=== PATIENT | female | born 1945 | race Caucasian/White ===

== ENCOUNTER 2025-05-11 15:59 | Outpatient (CLI) | payer MEDICARE, SELFPAY ==
--- NOTE | ~2025-05-11 | XR_ITS ---
XR knee LT 3V 05/11/2025 16:46 Indication: Chronic left knee pain Procedure: 4 views left knee Comparison: No prior studies for comparison. Findings: There is moderate tricompartment osteoarthritis with valgus angulation. There is ossification along the medial femoral condyle most likely secondary to remote injury to the medial collateral ligament. No acute fracture or traumatic malalignment. No significant joint effusion. Impression: 1: Moderate osteoarthritis of the left knee. Reviewed, dictated and finalized at location O. RWRITER Impression: 1: Moderate osteoarthritis of the left knee.
--- NOTE | ~2025-05-11 | XR_ITS ---
XR knee RT 3V 05/11/2025 16:45 Indication: Right knee pain Procedure: 3 views right knee Comparison: No prior studies for comparison. Findings: Moderate osteoarthritis of the right knee. No fracture, subluxation or dislocation. No significant joint effusion. No foreign bodies. Osteopenia. Impression: 1: Moderate tricompartment osteoarthritis of the right knee. Reviewed, dictated and finalized at location O. LIFE ECOLOGIST Impression: 1: Moderate tricompartment osteoarthritis of the right knee.
--- OUTSIDE RECORDS SUMMARY | 2025-05-11 16:06 | XMS_ITS | Encounter Summary ---
Author Organization [facility] Address [address] [place] [address] Care Team Providers Care After School Teacher Name Role Phone Thaddeus Alamo MD Primary Care Provider Encounter Details Date Type Department Care Team (Latest Contact Info) Description 10/21/1998 Outpatient Historical [facility] Medicine[id number] [place] [address] Jaskaran Aguilar MD NO ADDRESS ON FILE Need for desensitization to allergens (Primary Dx) Social History Tobacco Use Types Packs/Day Years Used Date Smoking Tobacco: Never Assessed Comments Unknown Sex and Gender Information Value Date Recorded Sex Assigned at Not on file Legal Sex Female 3:29 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
--- OUTSIDE RECORDS SUMMARY | 2025-05-11 16:06 | XMS_ITS | Encounter Summary ---
Author Organization [facility] Address [address] [place] [address] Care Team Providers Care Bullard Machine Operator Name Role Phone Thaddeus Alamo MD Primary Care Provider [phone] Encounter Details Date Type Department Care Team (Latest Contact Info) Description 07/18/1998 Outpatient Historical [facility] Medicine-[address] [place] [address] Michael Dillon, DO [address] [place] [address] Need for desensitization to allergens (Primary Dx) Social History Tobacco Use Types Packs/Day Years Used Date Smoking Tobacco: Never Assessed Comments Unknown Sex and Gender Information Value Date Recorded Sex Assigned at Not on file Legal Sex Female 3:29 AM 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
--- OUTSIDE RECORDS SUMMARY | 2025-05-11 16:06 | XMS_ITS | Encounter Summary ---
Author Organization [facility] Address [address] [place] [address] Care Team Providers Care Pediatrics Hospitalist Name Role Phone Thaddeus Alamo MD Primary Care Provider [phone] Encounter Details Date Type Department Care Team (Latest Contact Info) Description 12/15/1997 Outpatient Historical [facility] Medicine-[address] [place] [address] Jaskaran Aguilar MD NO ADDRESS ON FILE Need for desensitization to allergens (Primary Dx) Social History Tobacco Use Types Packs/Day Years Used Date Smoking Tobacco: Never Assessed Comments Unknown Sex and Gender Information Value Date Recorded Sex Assigned at Not on file Legal Sex Female 3:29 AM AIR CONDITIONING MANAGER Gender Identity Not on file Sexual Orientation Not on file documented as of this encounter Plan of Treatment Not on file documented as of this encounter Visit Diagnoses Diagnosis Need for desensitization to allergens- Primary documented in this encounter Care Teams Pediatrics Hospitalist Relationship Specialty Start Date End Date Thaddeus Alamo MD [address] [place] [address] PCP - General Internal Medicine 06/26/16 documented as of this encounter
--- OUTSIDE RECORDS SUMMARY | 2025-05-11 16:06 | XMS_ITS | Encounter Summary ---
Author Organization [facility] Address [address] [place] [address] Care Team Providers Care Site Coordinator Name Role Phone Thaddeus Alamo MD Primary Care Provider Encounter Details Date Type Department Care Team (Latest Contact Info) Description 01/26/1999 Outpatient Historical [facility] [place] [address] Blanco Miller MD NO ADDRESS ON FILE Other chronic allergic conjunctivitis (Primary Dx); Chronic rhinitis; Allergic rhinitis, cause unspecified Social History Tobacco Use Types Packs/Day Years Used Date Smoking Tobacco: Never Assessed Comments Unknown Sex and Gender Information Value Date Recorded Sex Assigned at Not on file Legal Sex Female 3:29 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
--- OUTSIDE RECORDS SUMMARY | 2025-05-11 16:06 | XMS_ITS | Encounter Summary ---
Author Organization [facility] Address [address] [place] [address] Care Team Providers Care Moisture Conditioner Operator Name Role Phone Thaddeus Alamo MD Primary Care Provider [phone] Encounter Details Date Type Department Care Team (Latest Contact Info) Description 08/19/1998 Outpatient Historical [facility] Medicine-[address] [address] Babita Starks MD NO ADDRESS ON FILE Need for desensitization to allergens (Primary Dx) Social History Tobacco Use Types Packs/Day Years Used Date Smoking Tobacco: Never Assessed Comments Unknown Sex and Gender Information Value Date Recorded Sex Assigned at Not on file Legal Sex Female 3:29 AM SOLID WASTE ENGINEER Gender Identity Not on file Sexual Orientation Not on file documented as of this encounter Plan of Treatment Not on file documented as of this encounter Visit Diagnoses Diagnosis Need for desensitization to allergens- Primary documented in this encounter Care Teams Moisture Conditioner Operator Relationship Specialty Start Date End Date Thaddeus Alamo MD [address] [place] [phone] PCP - General Internal Medicine 06/26/16 documented as of this encounter
--- OUTSIDE RECORDS SUMMARY | 2025-05-11 16:06 | XMS_ITS | Encounter Summary ---
Author Organization [facility] Address [address] [place] [address] Care Team Providers Care Convenience Store Manager Name Role Phone Thaddeus Alamo MD Primary Care Provider Encounter Details Date Type Department Care Team (Latest Contact Info) Description 09/02/1997 Outpatient Historical [facility] Medicine[address] [place] [address] Michael Dillon, DO [address] [place] [address] Need for desensitization to allergens (Primary Dx) Social History Tobacco Use Types Packs/Day Years Used Date Smoking Tobacco: Never Assessed Comments Unknown Sex and Gender Information Value Date Recorded Sex Assigned at Not on file Legal Sex Female 3:29 AM CLIENT SUPPORT PROFESSIONAL Gender Identity Not on file Sexual Orientation Not on file documented as of this encounter Plan of Treatment Not on file documented as of this encounter Visit Diagnoses Diagnosis Need for desensitization to allergens- Primary documented in this encounter Care Teams Convenience Store Manager Relationship Specialty Start Date End Date Thaddeus Alamo MD [address] [place] [address] PCP - General Internal Medicine 06/26/16 documented as of this encounter
--- OUTSIDE RECORDS SUMMARY | 2025-05-11 16:06 | XMS_ITS | Encounter Summary ---
Author Organization [facility] Address [address] [place] [address] Care Team Providers Care Field Examiner Name Role Phone Thaddeus Alamo MD Primary Care Provider [phone] Encounter Details Date Type Department Care Team (Latest Contact Info) Description 08/20/1997 Outpatient Historical [facility] Medicine[address] [place] [address] Jaskaran Aguilar MD NO ADDRESS ON FILE Need for desensitization to allergens (Primary Dx) Social History Tobacco Use Types Packs/Day Years Used Date Smoking Tobacco: Never Assessed Comments Unknown Sex and Gender Information Value Date Recorded Sex Assigned at Not on file Legal Sex Female 3:29 AM BUSINESS CONTROL MANAGER Gender Identity Not on file Sexual Orientation Not on file documented as of this encounter Plan of Treatment Not on file documented as of this encounter Visit Diagnoses Diagnosis Need for desensitization to allergens- Primary documented in this encounter Care Teams Field Examiner Relationship Specialty Start Date End Date Thaddeus Alamo MD [address] [place] [address] PCP - General Internal Medicine 06/26/16 documented as of this encounter
--- OUTSIDE RECORDS SUMMARY | 2025-05-11 16:06 | XMS_ITS | Encounter Summary ---
Author Organization [facility] Address [address] [place] [address] Care Team Providers Care Dial Screw Assembler Name Role Phone Thaddeus Alamo MD Primary Care Provider Encounter Details Date Type Department Care Team (Latest Contact Info) Description 03/07/1998 Outpatient Historical [facility] Medicine[address] [place] [address] Michael Dillon, DO [address] [place] [address] Need for desensitization to allergens (Primary Dx) Social History Tobacco Use Types Packs/Day Years Used Date Smoking Tobacco: Never Assessed Comments Unknown Sex and Gender Information Value Date Recorded Sex Assigned at Not on file Legal Sex Female 3:29 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
--- OUTSIDE RECORDS SUMMARY | 2025-05-11 16:06 | XMS_ITS | Encounter Summary ---
Author Organization [facility] Address [address] [place] [address] Care Team Providers Care Finance Teacher Name Role Phone Thaddeus Alamo MD Primary Care Provider Encounter Details Date Type Department Care Team (Latest Contact Info) Description 06/17/1998 Outpatient Historical [facility] Medicine[address] [place] [address] Michael Dillon, DO [address] [place] [address] Need for desensitization to allergens (Primary Dx) Social History Tobacco Use Types Packs/Day Years Used Date Smoking Tobacco: Never Assessed Comments Unknown Sex and Gender Information Value Date Recorded Sex Assigned at Not on file Legal Sex Female 3:29 AM TEST LEAD APPLICATION TESTING Gender Identity Not on file Sexual Orientation Not on file documented as of this encounter Plan of Treatment Not on file documented as of this encounter Visit Diagnoses Diagnosis Need for desensitization to allergens- Primary documented in this encounter Care Teams Finance Teacher Relationship Specialty Start Date End Date Thaddeus Alamo MD [address] [place] [address] PCP - General Internal Medicine 06/26/16 documented as of this encounter
--- OUTSIDE RECORDS SUMMARY | 2025-05-11 16:06 | XMS_ITS | Encounter Summary ---
Author Organization [facility] Address [address] [place] [address] Care Team Providers Care Application Support Manager Name Role Phone Thaddeus Alamo MD Primary Care Provider Encounter Details Date Type Department Care Team (Latest Contact Info) Description 06/14/1997 Outpatient [facility] [address] [place] [address] Michael Malagon MD NO ADDRESS ON FILE Unspecified essential hypertension (Primary Dx) Social History Tobacco Use Types Packs/Day Years Used Date Smoking Tobacco: Never Assessed Comments Unknown Sex and Gender Information Value Date Recorded Sex Assigned at Not on file 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
--- OUTSIDE RECORDS SUMMARY | 2025-05-11 16:06 | XMS_ITS | Clinical Summary ---
Author Organization [facility] Address [address] [place] [address] Care Team Providers Care Sales Promoter Name Role Phone Thaddeus Alamo MD Primary Care Provider Allergies No known active allergies Medications glimepiride (AMARYL) 4 mg tablet Take 4 mg by mouth 2 times daily with meals. 07/02/2017 Active valsartan (DIOVAN) 320 mg tablet Take 1 Tablet (320 mg) by mouth daily. 90 Tablet 1 05/11/2025 Active carvedilol (COREG) 12.5 mg tablet Take 0.5 Tablets (6.25 mg) by mouth every 12 hours with a meal/food. 45 Tablet 1 05/11/2025 Active furosemide (LASIX) 40 mg tablet Take 1 Tablet (40 mg) by mouth 2 times daily. 180 Tablet 1 05/11/2025 Active empagliflozin (Jardiance) 10 mg tablet Take 1 Tablet (10 mg) by mouth daily. 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 Type II or unspecified type diabetes mellitus without mention of complication, not stated as uncontrolled 06/02/2013 Pinguecula 06/02/2013 Vitreous floaters 06/02/2013 Resolved Problems Problem Noted Date Diagnosed Date Resolved Date Early cataracts, bilateral 06/02/2013 0 06/01/2015 Encounters Date Type Department Care Team Description 05/04/2025 External Device Data STL ABSTRACTION Provider, Abstract 02/23/2025 External Device Data [facility] ABSTRACTION Provider, Abstract from Last 3 Months Family History Medical History Relation Name Comments Diabetes Maternal Uncle Macular Degen Paternal Aunt Cataract Paternal Grandmother Amblyopia Neg Hx Blindness Neg Hx Detachment/Tears Neg Hx Glaucoma Neg Hx Strabismus Neg Hx Relation Name Status Comments Maternal Uncle Paternal Aunt Paternal Grandmother Social History Tobacco Use Types Packs/Day Years Used Date Smoking Tobacco: Never Assessed Alcohol Use Standard Drinks/Week Comments No 0 (1 standard drink = 0.6 oz pur e alcohol) Comments Unknown Sex and Gender Information Value Date Recorded Sex Assigned at Not on file Legal Sex Female 4:36 AM FIELD SERVICE MANAGER Gender Identity Not on file Sexual Orientation Not on file Last Filed Vital Signs Vital Sign Reading Time Taken Comments Blood Pressure 150/63 07/02/2017 3:27 PM FIELD SERVICE MANAGER Pulse - - Temperature - - Respiratory Rate - - Oxygen Saturation - - Inhaled Oxygen Concentration - - Weight 143.8 kg (317 lb) 07/02/2017 3:27 PM FIELD SERVICE MANAGER Height 162.6 cm (5' 4) 07/02/2017 3:27 PM FIELD SERVICE MANAGER Body Mass Index 54.41 07/02/2017 3:27 PM FIELD SERVICE MANAGER Plan of Treatment Health Maintenance Due Date Last Done Comments DIABETES ANNUAL FOOT EXAM 1964 DIABETES MICROALBUMIN ANNUAL SCREEN 1964 LDL CHOLESTEROL ANNUAL 1964 OSTEOPOROSIS SCREENING 10/01/2011 RSV VACCINE (60+ or ) (1 - 1-dose 75+ series) 2021 DIABETES ANNUAL RETINAL EXAM 10/25/202311/2022, 10/24/2022, 10/24/2022, Additional history exists INFLUENZA VACCINE (#1) 2024 , 03/08/2024, 03/08/2023, Additional history exists COVID-19 Vaccine (2024-2 6 season) 2025 02/03/2024, 03/08/2023, 02/02/2022, Additional history exists DIABETES HBA1C Q 6 MONTHS 04/21/2025 10/20/2024 DTAP/TDAP/TD VACCINES (2 - T d or Tdap) 08/30/2027 08/29/2017 ZOSTER VACCINE Completed 01/07/2020, 07/07/2019 PNEUMOCOCCAL VACCINE 50+ YEARS Completed 0 07/15/2024, 07/07/2019, 08/29/2017 Insurance MEDICARE PART A AND B [facility] MEDICARE PART A AND B [facility] [employer] Medicare Part D Care Teams Sales Promoter Relationship Specialty Start Date End Date Thaddeus Alamo MD [address] [place] [address] PCP - General Internal Medicine 06/26/16
--- OUTSIDE RECORDS SUMMARY | 2025-05-11 16:06 | XMS_ITS | Encounter Summary ---
Author Organization [facility] Address [address] [place] [address] Care Team Providers Care Motor Home Electrical Foreman Name Role Phone Thaddeus Alamo MD Primary Care Provider Encounter Details Date Type Department Care Team (Latest Contact Info) Description 06/03/1997 Outpatient Historical [facility] Medicine[address] [place] [address] Michael Dillon, DO [address] [place] [address] Need for desensitization to allergens (Primary Dx) Social History Tobacco Use Types Packs/Day Years Used Date Smoking Tobacco: Never Assessed Comments Unknown Sex and Gender Information Value Date Recorded Sex Assigned at Not on file Legal Sex Female 3:29 AM LOAN SERVICE OFFICER Gender Identity Not on file Sexual Orientation Not on file documented as of this encounter Plan of Treatment Not on file documented as of this encounter Visit Diagnoses Diagnosis Need for desensitization to allergens- Primary documented in this encounter Care Teams Motor Home Electrical Foreman Relationship Specialty Start Date End Date Thaddeus Alamo MD [address] [place] [address] PCP - General Internal Medicine 06/26/16 documented as of this encounter
--- OUTSIDE RECORDS SUMMARY | 2025-05-11 16:06 | XMS_ITS | Encounter Summary ---
Author Organization [facility] Address [address] [place] [address] Care Team Providers Care Cargo Services Coordinator Name Role Phone Thaddeus Alamo MD Primary Care Provider Encounter Details Date Type Department Care Team (Latest Contact Info) Description 04/19/1999 Outpatient Historical [facility] Medicine-[address] [place] [address] Jaskaran Aguilar MD NO ADDRESS ON FILE Need for desensitization to allergens (Primary Dx) Social History Tobacco Use Types Packs/Day Years Used Date Smoking Tobacco: Never Assessed Comments Unknown Sex and Gender Information Value Date Recorded Sex Assigned at Not on file Legal Sex Female 3:29 AM BENDER HAND Gender Identity Not on file Sexual Orientation Not on file documented as of this encounter Plan of Treatment Not on file documented as of this encounter Visit Diagnoses Diagnosis Need for desensitization to allergens- Primary documented in this encounter Care Teams Cargo Services Coordinator Relationship Specialty Start Date End Date Thaddeus Alamo MD [address] [place] [address] PCP - General Internal Medicine 06/26/16 documented as of this encounter
--- OUTSIDE RECORDS SUMMARY | 2025-05-11 16:06 | XMS_ITS | Encounter Summary ---
Author Organization [facility] Address [address] [place] [address] Care Team Providers Care Motorcycle Fabricator Name Role Phone Thaddeus Alamo MD Primary Care Provider [phone] Encounter Details Date Type Department Care Team (Latest Contact Info) Description 11/22/1998 Outpatient Historical [facility] Medicine[address] [place] [address] Jaskaran Aguilar MD NO ADDRESS ON FILE Need for desensitization to allergens (Primary Dx) Social History Tobacco Use Types Packs/Day Years Used Date Smoking Tobacco: Never Assessed Comments Unknown Sex and Gender Information Value Date Recorded Sex Assigned at Not on file Legal Sex Female 3:29 AM AIR BRAKE OPERATOR Gender Identity Not on file Sexual Orientation Not on file documented as of this encounter Plan of Treatment Not on file documented as of this encounter Visit Diagnoses Diagnosis Need for desensitization to allergens- Primary documented in this encounter Care Teams Motorcycle Fabricator Relationship Specialty Start Date End Date Thaddeus Alamo MD [address] [place] [address] PCP - General Internal Medicine 06/26/16 documented as of this encounter
--- OUTSIDE RECORDS SUMMARY | 2025-05-11 16:06 | XMS_ITS | Encounter Summary ---
Author Organization [facility] Address [address] [place] [address] Care Team Providers Care Certified Retinal Angiographer Name Role Phone Thaddeus Alamo MD Primary Care Provider Encounter Details Date Type Department Care Team (Latest Contact Info) Description 07/01/1997 Outpatient Historical [facility] Medicine-[address] [address] Babita Starks MD NO ADDRESS ON FILE Need for desensitization to allergens (Primary Dx) Social History Tobacco Use Types Packs/Day Years Used Date Smoking Tobacco: Never Assessed Comments Unknown Sex and Gender Information Value Date Recorded Sex Assigned at Not on file Legal Sex Female 3:29 AM RETAIL BANKING MANAGER Gender Identity Not on file Sexual Orientation Not on file documented as of this encounter Plan of Treatment Not on file documented as of this encounter Visit Diagnoses Diagnosis Need for desensitization to allergens- Primary documented in this encounter Care Teams Certified Retinal Angiographer Relationship Specialty Start Date End Date Thaddeus Alamo MD [address] [place] [address] PCP - General Internal Medicine 06/26/16 documented as of this encounter
--- OUTSIDE RECORDS SUMMARY | 2025-05-11 16:06 | XMS_ITS | Encounter Summary ---
Author Organization [facility] Address [address] [place] [address] Care Team Providers Care Steward/Stewardess Second Name Role Phone Thaddeus Alamo MD Primary Care Provider Encounter Details Date Type Department Care Team (Latest Contact Info) Description 04/26/1997 Outpatient Historical [facility] Medicine[address] [place] [address] Jaskaran Aguilar MD NO ADDRESS ON FILE Need for desensitization to allergens (Primary Dx) Social History Tobacco Use Types Packs/Day Years Used Date Smoking Tobacco: Never Assessed Comments Unknown Sex and Gender Information Value Date Recorded Sex Assigned at Not on file Legal Sex Female 3:29 AM DATA WAREHOUSE MANAGER Gender Identity Not on file Sexual Orientation Not on file documented as of this encounter Plan of Treatment Not on file documented as of this encounter Visit Diagnoses Diagnosis Need for desensitization to allergens- Primary documented in this encounter Care Teams Steward/Stewardess Second Relationship Specialty Start Date End Date Thaddeus Alamo MD [address] [place] [phone] PCP - General Internal Medicine 06/26/16 documented as of this encounter
--- OUTSIDE RECORDS SUMMARY | 2025-05-11 16:06 | XMS_ITS | Encounter Summary ---
Author Organization [facility] Address [address] [place] [address] Care Team Providers Care Content Coordinator Name Role Phone Thaddeus Alamo MD Primary Care Provider [phone] Encounter Details Date Type Department Care Team (Late st Contact Info) Description 07/18/[address] [facility] [address] Social History Tobacco Use Types Packs/Day Years Used Date Smoking Tobacco: Never Assessed Comments Unknown Sex and Gender Information Value Date Recorded Sex Assigned at Not on file Legal Sex Female 3:29 AM PRESSING MACHINE TENDER Gender Identity Not on file Sexual Orientation Not on file documented as of this encounter Plan of Treatment Not on file documented as of this encounter Visit Diagnoses Not on filedocumented in this encounter Care Teams Content Coordinator Relationship Specialty Start Date End Date Thaddeus Alamo MD [address] [place] [address] PCP - General Internal Medicine 06/26/16 documented as of this encounter
--- OUTSIDE RECORDS SUMMARY | 2025-05-11 16:06 | XMS_ITS | Encounter Summary ---
Author Organization [facility] Address [address] [place] [address] Care Team Providers Care Hide Tanner Name Role Phone Thaddeus Alamo MD Primary Care Provider Encounter Details Date Type Department Care Team (Latest Contact Info) Description 07/29/1997 Outpatient Historical [facility] [address] [place] [address] Michael Dillon, DO [address] [place] [address] Need for desensitization to allergens (Primary Dx) Social History Tobacco Use Types Packs/Day Years Used Date Smoking Tobacco: Never Assessed Comments Unknown Sex and Gender Information Value Date Recorded Sex Assigned at Not on file Legal Sex Female 3:29 AM SENIOR ADMINISTRATOR SUPPORT Gender Identity Not on file Sexual Orientation Not on file documented as of this encounter Plan of Treatment Not on file documented as of this encounter Visit Diagnoses Diagnosis Need for desensitization to allergens- Primary documented in this encounter Care Teams Hide Tanner Relationship Specialty Start Date End Date Thaddeus Alamo MD [address] [place] [address] PCP - General Internal Medicine 06/26/16 documented as of this encounter
--- OUTSIDE RECORDS SUMMARY | 2025-05-11 16:06 | XMS_ITS | Encounter Summary ---
Author Organization [facility] Address [address] [place] [address] Care Team Providers Care Pigment Grinder Name Role Phone Thaddeus Alamo MD Primary Care Provider Encounter Details Date Type Department Care Team (Latest Contact Info) Description 03/22/1999 Outpatient Historical [facility] Medicine[address] [place] [address] Michael Dillon, DO [address] [place] [address] Need for desensitization to allergens (Primary Dx) Social History Tobacco Use Types Packs/Day Years Used Date Smoking Tobacco: Never Assessed Comments Unknown Sex and Gender Information Value Date Recorded Sex Assigned at Not on file 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
--- OUTSIDE RECORDS SUMMARY | 2025-05-11 16:06 | XMS_ITS | Encounter Summary ---
Author Organization [facility] Address [address] [place] [address] Care Team Providers Care Sales Applications Engineer Name Role Phone Thaddeus Alamo MD Primary Care Provider [phone] Encounter Details Date Type Department Care Team (Latest Contact Info) Description 07/19/1997 Outpatient Historical [facility] Curtis Ruiz MD NO ADDRESS ON FILE Localized osteoarthrosis not specified whether primary or secondary, lower leg (Primary Dx) Social History Tobacco Use Types Packs/Day Years Used Date Smoking Tobacco: Never Assessed Comments Unknown Sex and Gender Information Value Date Recorded Sex Assigned at Not on file Legal Sex Female 3:29 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
--- OUTSIDE RECORDS SUMMARY | 2025-05-11 16:06 | XMS_ITS | Encounter Summary ---
Author Organization [facility] Address [address] [place] [address] Care Team Providers Care Manager Financial Systems Name Role Phone Thaddeus Alamo MD Primary Care Provider Encounter Details Date Type Department Care Team (Late st Contact Info) Description 10/05/1997 Outpatient [facility] [address] [place] [address] Graciela Kevin MD [address] [place] [address] Abn Pap Smear-Cervix (Primary Dx) Social History Tobacco Use Types Packs/Day Years Used Date Smoking Tobacco: Never Assessed Comments Unknown Sex and Gender Information Value Date Recorded Sex Assigned at Not on file Legal Sex Female 3:29 AM FILM HISTORIAN Gender Identity Not on file Sexual Orientation Not on file documented as of this encounter Plan of Treatment Not on file documented as of this encounter Visit Diagnoses Diagnosis Abn Pap Smear-Cervix- Primary 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
--- OUTSIDE RECORDS SUMMARY | 2025-05-11 16:06 | XMS_ITS | Encounter Summary ---
Author Organization [facility] Address [address] [place] [address] Care Team Providers Care General Expeditor Name Role Phone Thaddeus Alamo MD Primary Care Provider Encounter Details Date Type Department Care Team (Latest Contact Info) Description 09/16/1997 Outpatient Historical [facility] Medicine[address] [place] [address] Michael Dillon, DO [address] [place] [address] Need for desensitization to allergens (Primary Dx) Social History Tobacco Use Types Packs/Day Years Used Date Smoking Tobacco: Never Assessed Comments Unknown Sex and Gender Information Value Date Recorded Sex Assigned at Not on file 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
--- OUTSIDE RECORDS SUMMARY | 2025-05-11 16:06 | XMS_ITS | Encounter Summary ---
Author Organization [facility] Address [address] [place] [address] Care Team Providers Care Blunger Loader Name Role Phone Thaddeus Alamo MD Primary Care Provider Encounter Details Date Type Department Care Team (Latest Contact Info) Description 10/18/1997 Outpatient Historical [facility] Medicine[address] [place] [address] Michael Dillon, DO [address] [place] [address] Need for desensitization to allergens (Primary Dx) Social History Tobacco Use Types Packs/Day Years Used Date Smoking Tobacco: Never Assessed Comments Unknown Sex and Gender Information Value Date Recorded Sex Assigned at Not on file 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
--- OUTSIDE RECORDS SUMMARY | 2025-05-11 16:06 | XMS_ITS | Encounter Summary ---
Author Organization [facility] Address [address] [place] [address] Care Team Providers Care Dielectric Press Operator Name Role Phone Thaddeus Alamo MD Primary Care Provider [phone] Encounter Details Date Type Department Care Team (Latest Contact Info) Description 12/02/[address] 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
--- OUTSIDE RECORDS SUMMARY | 2025-05-11 16:06 | XMS_ITS | Encounter Summary ---
Author Organization [facility] Address [address] [place] [address] Care Team Providers Care Cab Driver Name Role Phone Thaddeus Alamo MD Primary Care Provider Encounter Details Date Type Department Care Team (Latest Contact Info) Description 12/26/1998 Outpatient Historical [facility] Medicine-[address] [address] Babita Starks MD NO ADDRESS ON FILE Need for desensitization to allergens (Primary Dx) Social History Tobacco Use Types Packs/Day Years Used Date Smoking Tobacco: Never Assessed Comments Unknown Sex and Gender Information Value Date Recorded Sex Assigned at Not on file Legal Sex Female 3:29 AM PLATFORM MATERIAL HANDLING 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
--- OUTSIDE RECORDS SUMMARY | 2025-05-11 16:06 | XMS_ITS | Encounter Summary ---
Author Organization [facility] Address [address] [place] [address] Care Team Providers Care Emergency Medical Service Coordinator Name Role Phone Thaddeus Alamo MD Primary Care Provider Encounter Details Date Type Department Care Team (Latest Contact Info) Description 02/08/1998 Outpatient Historical [facility] Medicine-[address] [address] Babita Starks MD NO ADDRESS ON FILE Need for desensitization to allergens (Primary Dx) Social History Tobacco Use Types Packs/Day Years Used Date Smoking Tobacco: Never Assessed Comments Unknown Sex and Gender Information Value Date Recorded Sex Assigned at Not on file 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
--- OUTSIDE RECORDS SUMMARY | 2025-05-11 16:06 | XMS_ITS | Encounter Summary ---
Author Organization [facility] Address [address] [place] [address] Care Team Providers Care Field Services Analyst Name Role Phone Thaddeus Alamo MD Primary Care Provider Encounter Details Date Type Department Care Team (Latest Contact Info) Description 04/18/1998 Outpatient Historical [facility] Medicine-[address] [address] Babita Starks MD NO ADDRESS ON FILE Need for desensitization to allergens (Primary Dx) Social History Tobacco Use Types Packs/Day Years Used Date Smoking Tobacco: Never Assessed Comments Unknown Sex and Gender Information Value Date Recorded Sex Assigned at Not on file 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
--- OUTSIDE RECORDS SUMMARY | 2025-05-11 16:06 | XMS_ITS | Encounter Summary ---
Author Organization [facility] Address [address] [place] [address] Care Team Providers Care Disability Program Navigator Name Role Phone Thaddeus Alamo MD Primary Care Provider Encounter Details Date Type Department Care Team (Latest Contact Info) Description 09/19/1998 Outpatient Historical [facility] Medicine[address] [place] [address] Michael Dillon, DO [address] [place] [address] Need for desensitization to allergens (Primary Dx) Social History Tobacco Use Types Packs/Day Years Used Date Smoking Tobacco: Never Assessed Comments Unknown Sex and Gender Information Value Date Recorded Sex Assigned at Not on file Legal Sex Female 3:29 AM SOUS CHEF Gender Identity Not on file Sexual Orientation Not on file documented as of this encounter Plan of Treatment Not on file documented as of this encounter Visit Diagnoses Diagnosis Need for desensitization to allergens- Primary documented in this encounter Care Teams Disability Program Navigator Relationship Specialty Start Date End Date Thaddeus Alamo MD [address] [place] [address] PCP - General Internal Medicine 06/26/16 documented as of this encounter
--- OUTSIDE RECORDS SUMMARY | 2025-05-11 16:06 | XMS_ITS | Encounter Summary ---
Author Organization [facility] Address [address] [place] [address] Care Team Providers Care Derrick Boat Runner Name Role Phone Thaddeus Alamo MD Primary Care Provider Encounter Details Date Type Department Care Team (Latest Contact Info) Description 06/16/1997 Outpatient Historical [facility] Medicine[address] [place] [address] Michael Dillon, DO [address] [place] [address] Need for desensitization to allergens (Primary Dx) Social History Tobacco Use Types Packs/Day Years Used Date Smoking Tobacco: Never Assessed Comments Unknown Sex and Gender Information Value Date Recorded Sex Assigned at Not on file 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
--- OUTSIDE RECORDS SUMMARY | 2025-05-11 16:06 | XMS_ITS | Encounter Summary ---
Author Organization [facility] Address [address] [place] [address] Care Team Providers Care Grinding Machine Operator Portable Name Role Phone Thaddeus Alamo MD Primary Care Provider [phone] Encounter Details Date Type Department Care Team (Latest Contact Info) Description 05/02/1998 Outpatient Historical [facility] Medicine[address] [place] [address] Michael Dillon, DO [address] [place] [address] Need for desensitization to allergens (Primary Dx) Social History Tobacco Use Types Packs/Day Years Used Date Smoking Tobacco: Never Assessed Comments Unknown Sex and Gender Information Value Date Recorded Sex Assigned at Not on file 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
--- OUTSIDE RECORDS SUMMARY | 2025-05-11 16:06 | XMS_ITS | Encounter Summary ---
Author Organization [facility] Address [address] [place] [address] Care Team Providers Care Solar Development Engineer Name Role Phone Thaddeus Alamo MD Primary Care Provider Encounter Details Date Type Department Care Team (Latest Contact Info) Description 02/22/1998 Outpatient Historical [facility] Medicine[address] [place] [address] Michael Dillon, DO [address] [place] [address] Need for desensitization to allergens (Primary Dx) Social History Tobacco Use Types Packs/Day Years Used Date Smoking Tobacco: Never Assessed Comments Unknown Sex and Gender Information Value Date Recorded Sex Assigned at Not on file Legal Sex Female 3:29 AM STUDENT DEVELOPMENT COORDINATOR Gender Identity Not on file Sexual Orientation Not on file documented as of this encounter Plan of Treatment Not on file documented as of this encounter Visit Diagnoses Diagnosis Need for desensitization to allergens- Primary documented in this encounter Care Teams Solar Development Engineer Relationship Specialty Start Date End Date Thaddeus Alamo MD [address] [place] [address] PCP - General Internal Medicine 06/26/16 documented as of this encounter
--- OUTSIDE RECORDS SUMMARY | 2025-05-11 16:06 | XMS_ITS | Encounter Summary ---
Author Organization [facility] Address [address] [place] [address] Care Team Providers Care Head Wood Grinder Name Role Phone Thaddeus Alamo MD Primary Care Provider Encounter Details Date Type Department Care Team (Latest Contact Info) Description 02/01/[address] [facility] [place] [address] Curtis Arreola, OD [address] [place] [address] CONJUNCTIVITIS NOS (Primary Dx) Social History Tobacco Use Types Packs/Day Years Used Date Smoking Tobacco: Never Assessed Comments Unknown Sex and Gender Information Value Date Recorded Sex Assigned at Not on file Legal Sex Female 3:29 AM PRODUCTION CONTROL ANALYST Gender Identity Not on file Sexual Orientation Not on file documented as of this encounter Plan of Treatment Not on file documented as of this encounter Visit Diagnoses Diagnosis Conjunctivitis unspecified- Primary Conjunctivitis, unspecified documented in this encounter Care Teams Head Wood Grinder Relationship Specialty Start Date End Date Thaddeus Alamo MD [address] [place] [address] PCP - General Internal Medicine 06/26/16 documented as of this encounter
--- OUTSIDE RECORDS SUMMARY | 2025-05-11 16:06 | XMS_ITS | Encounter Summary ---
Author Organization [facility] Address [address] [place] [address] Care Team Providers Care Vending Mechanic Name Role Phone Thaddeus Alamo MD Primary Care Provider [phone] Encounter Details Date Type Department Care Team (Latest Contact Info) Description 07/15/1997 Outpatient Historical [facility] Medicine[address] [place] [address] Michael Dillon, DO [address] [place] [address] Need for desensitization to allergens (Primary Dx) Social History Tobacco Use Types Packs/Day Years Used Date Smoking Tobacco: Never Assessed Comments Unknown Sex and Gender Information Value Date Recorded Sex Assigned at Not on file 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
--- OUTSIDE RECORDS SUMMARY | 2025-05-11 16:06 | XMS_ITS | Encounter Summary ---
Author Organization [facility] Address [address] [place] [address] Care Team Providers Care Parts Identifier Name Role Phone Thaddeus Alamo MD Primary Care Provider Encounter Details Date Type Department Care Team (Latest Contact Info) Description 02/10/1999 Outpatient Historical [facility] Medicine-[address] [address] Babita Starks MD NO ADDRESS ON FILE Need for desensitization to allergens (Primary Dx) Social History Tobacco Use Types Packs/Day Years Used Date Smoking Tobacco: Never Assessed Comments Unknown Sex and Gender Information Value Date Recorded Sex Assigned at Not on file 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
--- OUTSIDE RECORDS SUMMARY | 2025-05-11 16:06 | XMS_ITS | Encounter Summary ---
Author Organization [facility] Address [address] [place] [address] Care Team Providers Care Entertainment Lawyer Name Role Phone Thaddeus Alamo MD Primary Care Provider [phone] Encounter Details Date Type Department Care Team (Latest Contact Info) Description 11/10/1997 Outpatient Historical [facility] [address] [place] [address] Jaskaran Aguilar MD NO ADDRESS ON FILE Need for desensitization to allergens (Primary Dx) Social History Tobacco Use Types Packs/Day Years Used Date Smoking Tobacco: Never Assessed Comments Unknown Sex and Gender Information Value Date Recorded Sex Assigned at Not on file Legal Sex Female 3:29 AM DEBURRING TECHNICIAN Gender Identity Not on file Sexual Orientation Not on file documented as of this encounter Plan of Treatment Not on file documented as of this encounter Visit Diagnoses Diagnosis Need for desensitization to allergens- Primary documented in this encounter Care Teams Entertainment Lawyer Relationship Specialty Start Date End Date Thaddeus Alamo MD [address] [place] [phone] PCP - General Internal Medicine 06/26/16 documented as of this encounter
--- OUTSIDE RECORDS SUMMARY | 2025-05-11 16:06 | XMS_ITS | Encounter Summary ---
Author Organization [facility] Address [address] [place] [address] Care Team Providers Care Oiler And Greaser Name Role Phone Thaddeus Alamo MD Primary Care Provider [phone] Encounter Details Date Type Department Care Team (Latest Contact Info) Description 05/21/1997 Outpatient Historical [facility] Medicine-[address] [address] Babita Starks MD NO ADDRESS ON FILE Need for desensitization to allergens (Primary Dx) Social History Tobacco Use Types Packs/Day Years Used Date Smoking Tobacco: Never Assessed Comments Unknown Sex and Gender Information Value Date Recorded Sex Assigned at Not on file Legal Sex Female 3:29 AM ZONING TECHNICIAN Gender Identity Not on file Sexual Orientation Not on file documented as of this encounter Plan of Treatment Not on file documented as of this encounter Visit Diagnoses Diagnosis Need for desensitization to allergens- Primary documented in this encounter Care Teams Oiler And Greaser Relationship Specialty Start Date End Date Thaddeus Alamo MD [address] [place] [phone] PCP - General Internal Medicine 06/26/16 documented as of this encounter
--- OUTSIDE RECORDS SUMMARY | 2025-05-11 16:06 | XMS_ITS | Encounter Summary ---
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) Social History Tobacco Use Types Packs/Day Years Used Date Smoking Tobacco: Never Assessed Comments Unknown Sex and Gender Information Value Date Recorded Sex Assigned at Not on file Legal Sex Female 3:29 AM IMMUNOCHEMIST Gender Identity Not on file Sexual Orientation Not on file documented as of this encounter Plan of Treatment Not on file documented as of this encounter Visit Diagnoses Diagnosis Prolapse of vaginal yee without mention of uterine prolapse- Primary documented in this encounter Care Teams Bakery Clerk Relationship Specialty Start Date End Date Thaddeus Alamo MD [address] [place] [address] PCP - General Internal Medicine 06/26/16 documented as of this encounter
--- OUTSIDE RECORDS SUMMARY | 2025-05-11 16:06 | XMS_ITS | Encounter Summary ---
Author Organization [facility] Address [address] [place] [address] Care Team Providers Care Drive In Waiter/Waitress Name Role Phone Thaddeus Alamo MD Primary Care Provider Encounter Details Date Type Department Care Team (Late st Contact Info) Description 06/14/1997 Outpatient Historical [facility] Imaging [facility] [address] [place] [phone] Idris Altamirano MD [address] [place] [address] Pain in joint, pelvic region and thigh (Primary Dx) Social History Tobacco Use Types Packs/Day Years Used Date Smoking Tobacco: Never Assessed Comments Unknown Sex and Gender Information Value Date Recorded Sex Assigned at Not on file Legal Sex Female 3:29 AM LOAD OUT WORKER Gender Identity Not on file Sexual Orientation Not on file documented as of this encounter Plan of Treatment Not on file documented as of this encounter Visit Diagnoses Diagnosis Pain in joint, pelvic region and thigh- Primary documented in this encounter Care Teams Drive In Waiter/Waitress Relationship Specialty Start Date End Date Thaddeus Alamo MD [address] [place] [phone] PCP - General Internal Medicine 06/26/16 documented as of this encounter
--- OUTSIDE RECORDS SUMMARY | 2025-05-11 16:06 | XMS_ITS | Encounter Summary ---
Author Organization [facility] Address [address] [place] [address] Care Team Providers Care Retail Analytics Manager Name Role Phone Thaddeus Alamo MD Primary Care Provider [phone] Encounter Details Date Type Department Care Team (Latest Contact Info) Description 1997 Outpatient Historical [facility] Medicine-[address] [place] [address] Michael Dillon, DO [address] [place] [address] Need for desensitization to allergens (Primary Dx) Social History Tobacco Use Types Packs/Day Years Used Date Smoking Tobacco: Never Assessed Comments Unknown Sex and Gender Information Value Date Recorded Sex Assigned at Not on file 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
--- OUTSIDE RECORDS SUMMARY | 2025-05-11 16:06 | XMS_ITS | Encounter Summary ---
Author Organization [facility] Address [address] [place] [address] Care Team Providers Care Film Library Clerk Name Role Phone Thaddeus Alamo MD Primary Care Provider [phone] Encounter Details Date Type Department Care Team (Latest Contact Info) Description 05/25/1997 Outpatient Historical [facility] Eric Van Zandt [address] [place] [phone] Rodríguez Sinclair MD NO ADDRESS ON FILE Family history of malignant neoplasm of breast (Primary Dx) Social History Tobacco Use Types Packs/Day Years Used Date Smoking Tobacco: Never Assessed Comments Unknown Sex and Gender Information Value Date Recorded Sex Assigned at Not on file 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
--- OUTSIDE RECORDS SUMMARY | 2025-05-11 16:06 | XMS_ITS | Encounter Summary ---
Author Organization [facility] Address [address] [place] [address] Care Team Providers Care Live Ammunition Inspector Name Role Phone Thaddeus Alamo MD Primary Care Provider Encounter Details Date Type Department Care Team (Latest Contact Info) Description 04/05/1999 Outpatient Historical [facility] Medicine-[address] [place] [address] Michael Dillon, DO [address] [place] [address] Need for desensitization to allergens (Primary Dx) Social History Tobacco Use Types Packs/Day Years Used Date Smoking Tobacco: Never Assessed Comments Unknown Sex and Gender Information Value Date Recorded Sex Assigned at Not on file 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
--- OUTSIDE RECORDS SUMMARY | 2025-05-11 16:06 | XMS_ITS | Clinical Summary ---
Author Organization [facility] Address [address] [place] [address] Care Team Providers Care Auto Glass Worker Name Role Phone Thaddeus Alamo MD Primary Care Provider [phone] Allergies No known active allergies Medications TOPROL XL 50 mg tablet 05/04/2013 Active PARoxetine HCl (PAXIL) 20 mg tablet 05/04/2013 Active medroxyPROGESTER one (PROVERA) 10 mg tablet 05/31/2013 Active HYDROCHLOROTHIAZ ADY 25 mg Oral tablet 05/04/2013 Active benazepril (LOTENSIN) 20 mg tablet 05/04/2013 Active ciprofloxacin (CIPRO) 500 mg tablet 05/31/2013 Active glimepiride (AMARYL) 4 mg tablet Take 4 mg by mouth 2 times daily with meals. 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 Type II or unspecified type diabetes mellitus without mention of complication, not stated as uncontrolled 06/02/2013 Pinguecula 06/02/2013 Vitreous floaters 06/02/2013 Resolved Problems Problem Noted Date Diagnosed Date Resolved Date Early cataracts, bilateral 06/02/2013 0 06/01/2015 Family History Medical History Relation Name Comments [...] on file Legal Sex Female 3:29 AM COMPUTER AIDED DESIGN OPERATOR Gender Identity Not on file Sexual Orientation Not on file Last Filed Vital Signs Vital Sign Reading Time Taken Comments Blood Pressure 150/63 07/02/2017 3:27 PM COMPUTER AIDED DESIGN OPERATOR Pulse - - Temperature - - Respiratory Rate - - Oxygen Saturation - - Inhaled Oxygen Concentration - - Weight 143.8 kg (317 lb) 07/02/2017 3:27 PM COMPUTER AIDED DESIGN OPERATOR Height 162.6 cm (5' 4) 07/02/2017 3:27 PM COMPUTER AIDED DESIGN OPERATOR Body Mass Index 54.41 07/02/2017 3:27 PM COMPUTER AIDED DESIGN OPERATOR Plan of Treatment Health Maintenance Due Date Last Done Comments DIABETES ANNUAL FOOT EXAM 1964 DIABETES HBA1C Q 6 MONTHS 1964 DIABETES MICROALBUMIN ANNUAL SCREEN 1964 LDL CHOLESTEROL ANNUAL 1964 OSTEOPOROSIS SCREENING 10/01/2011 ZOSTER VACCINE (2 of 2) 09/01/2019 07/07/2019 DIABETES ANNUAL RETINAL EXAM 09/12/2021, 09/12/2020, 09/12/2020, Additional history exists RSV VACCINE (60+ or ) (1 - 1-dose 75+ series) 2021 INFLUENZA VACCINE (#1) 2024 , 03/11/2018, 02/14/2015, Additional history exists DTAP/TDAP/TD VACCINES (2 - T d or Tdap) 08/30/2027 08/29/2017 PNEUMOCOCCAL VACCINE 50+ YEARS Completed 07/07/2019 , 08/29/2017 [place] [address] MEDICARE PART A AND B Care Teams Auto Glass Worker Relationship Specialty Start Date End Date Thaddeus Alamo MD [address] [place] [phone] PCP - General Internal Medicine 06/26/16
--- OUTSIDE RECORDS SUMMARY | 2025-05-11 16:06 | XMS_ITS | Encounter Summary ---
Author Organization [facility] Address [address] [place] [address] Care Team Providers Care Cuff Stitcher Name Role Phone Thaddeus Alamo MD Primary Care Provider [phone] Encounter Details Date Type Department Care Team (Latest Contact Info) Description 03/21/1998 Outpatient Historical [facility] Allergy and Asthma- [place] [address] [place] [address] Blanco Miller MD NO ADDRESS ON FILE Allergic rhinitis, cause unspecified (Primary Dx); Chronic rhinitis Social History Tobacco Use Types Packs/Day Years Used Date Smoking Tobacco: Never Assessed Comments Unknown Sex and Gender Information Value Date Recorded Sex Assigned at Not on file 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
--- OUTSIDE RECORDS SUMMARY | 2025-05-11 16:06 | XMS_ITS | Encounter Summary ---
Author Organization [facility] Address [address] [place] [address] Care Team Providers Care Grants Officer Name Role Phone Thaddeus Alamo MD Primary Care Provider Encounter Details Date Type Department Care Team (Latest Contact Info) Description 05/07/1997 Outpatient Historical [facility] Medicine-[address] [place] [address] Michael Dillon, DO [address] [place] [address] Need for desensitization to allergens (Primary Dx) Social History Tobacco Use Types Packs/Day Years Used Date Smoking Tobacco: Never Assessed Comments Unknown Sex and Gender Information Value Date Recorded Sex Assigned at Not on file 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
--- OUTSIDE RECORDS SUMMARY | 2025-05-11 16:06 | XMS_ITS | Encounter Summary ---
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
--- OUTSIDE RECORDS SUMMARY | 2025-05-11 16:06 | XMS_ITS | Encounter Summary ---
Author Organization [facility] Address [address] [place] [address] Care Team Providers Care Metal Refiner Name Role Phone Thaddeus Alamo MD Primary Care Provider [phone] Encounter Details Date Type Department Care Team (Latest Contact Info) Description 05/22/1999 Outpatient Historical [facility] Medicine-[address] [address] Babita Starks MD NO ADDRESS ON FILE Need for desensitization to allergens (Primary Dx) Social History Tobacco Use Types Packs/Day Years Used Date Smoking Tobacco: Never Assessed Comments Unknown Sex and Gender Information Value Date Recorded Sex Assigned at Not on file Legal Sex Female 3:29 AM CHAINSTITCH FELLED SEAM OPERATOR Gender Identity Not on file Sexual Orientation Not on file documented as of this encounter Plan of Treatment Not on file documented as of this encounter Visit Diagnoses Diagnosis Need for desensitization to allergens- Primary documented in this encounter Care Teams Metal Refiner Relationship Specialty Start Date End Date Thaddeus Alamo MD [address] [place] [phone] PCP - General Internal Medicine 06/26/16 documented as of this encounter
--- OUTSIDE RECORDS SUMMARY | 2025-05-11 16:06 | XMS_ITS | Encounter Summary ---
Author Organization [facility] Address [address] [place] [address] Care Team Providers Care Sourcing Engineer Name Role Phone Thaddeus Alamo MD Primary Care Provider Encounter Details Date Type Department Care Team (Latest Contact Info) Description 04/04/1998 Outpatient Historical [facility] Medicine-[address] [place] [address] Michael Dillon, DO [address] [place] [address] Need for desensitization to allergens (Primary Dx) Social History Tobacco Use Types Packs/Day Years Used Date Smoking Tobacco: Never Assessed Comments Unknown Sex and Gender Information Value Date Recorded Sex Assigned at Not on file Legal Sex Female 3:29 AM ESTHETICIAN Gender Identity Not on file Sexual Orientation Not on file documented as of this encounter Plan of Treatment Not on file documented as of this encounter Visit Diagnoses Diagnosis Need for desensitization to allergens- Primary documented in this encounter Care Teams Sourcing Engineer Relationship Specialty Start Date End Date Thaddeus Alamo MD [address] [place] [address] PCP - General Internal Medicine 06/26/16 documented as of this encounter
--- OUTSIDE RECORDS SUMMARY | 2025-05-11 16:06 | XMS_ITS | Encounter Summary ---
Author Organization [facility] Address [address] [place] [address] Care Team Providers Care Head Silverman Name Role Phone Thaddeus Alamo MD Primary Care Provider Encounter Details Date Type Department Care Team (Latest Contact Info) Description 12/29/1997 Outpatient Historical [facility] Medicine-[address] [place] [address] Jaskaran Aguilar MD NO ADDRESS ON FILE Need for desensitization to allergens (Primary Dx) Social History Tobacco Use Types Packs/Day Years Used Date Smoking Tobacco: Never Assessed Comments Unknown Sex and Gender Information Value Date Recorded Sex Assigned at Not on file 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
[2025-05-11 16:37] LABS: Add Urine Microscopic? NO; Appearance Urine Clear (Clear); Glucose Urine UA Negative (Negative); Leukocyte Esterase Ur Negative LEU/UL (Negative); Nitrate Urine Negative (Negative); Specific Grav Ur 1.014 (1.001-1.035)
[2025-05-11 16:38] LABS: Hematocrit 33.7 % (37.0-47.0); Hemoglobin 11.3 g/dL (12.0-15.0); Immature Granulocyte Percent A 0.5 % (0-0.5); Lymphocytes Absolute Auto 1.09 K/mm3 (0.9-3.2); Mean Corpuscular HGB Conc 33.5 g/dl (32-36); Mean Corpuscular Hemoglobin 32.0 pg (26-34); Mean Corpuscular Volume 95.5 fl (80-100); Nucleated Red Blood Cells Absolute Auto 0.000 K/mm3 (0.0-0.012); Nucleated Red Blood Cells Perc 0.0 % (0.0-0.2); Platelet Count Result 138 k/mm3 (150-375); Red Blood Count 3.53 M/mm3 (4.2-5.4); White Blood Count 6.3 K/mm3 (4.5-10.0)
[2025-05-11 16:44] LABS: Alanine Aminotransferase 39 U/L (6-35); Albumin Level 2.7 g/dL (3.5-5.1); Alkaline Phosphatase 134 U/L (38-126); Anion Gap 6 mmol/L (4-12); Aspartate Amino Transferase 67 U/L (14-36); Bilirubin,Total 1.3 mg/dL (0.2-1.3); Blood Urea Nitrogen 58 mg/dL (7-17); Calcium 8.4 mg/dL (8.4-10.2); Carbon Dioxide 22 mmol/L (22-30); Chloride 108 mmol/L (98-107); Cholesterol 117 mg/dL (0-200); Estimated Glomerular Filt Rate 43; Glucose 75 mg/dL (65-110); HDL Direct 28 mg/dL; Potassium 3.5 mmol/L (3.4-5.0); Sodium 136 mmol/L (137-145); Total Protein 6.2 g/dL (6.3-8.2); Triglycerides 110 mg/dL (<150); Uric Acid 11.1 mg/dL (2.5-7.5)
[2025-05-11 16:52] LABS: Hemoglobin A1C 4.2 % (<5.7)
[2025-05-11 17:01] LABS: Free T4 Free Thyroxine 1.79 ng/dL (0.78-2.19)
[2025-05-11 17:19] LABS: Thyroid Stimulating Hormone 2.700 uIU/mL (0.465-4.680)
== END 2025-05-11 16:00 | disposition home or self-care (01) ==
PROVIDERS: PCP Internal Medicine; Visit Provider Internal Medicine
DX: M25.561 Pain in right knee (principal); M17.0 Bilateral primary osteoarthritis of knee; E55.9 Vitamin D deficiency, unspecified; I10 Essential (primary) hypertension; E11.9 Type 2 diabetes mellitus without complications; E78.2 Mixed hyperlipidemia; Z13.29 Encounter for screening for other suspected endocrine disorder; Z79.899 Other long term (current) drug therapy
CPT/HCPCS: 36415; 73562; 80053; 80061; 81003; 82306; 83036; 84439; 84443; 84550; 85025